=== PATIENT | female | born 1960 | race Caucasian/White ===

== ENCOUNTER → 2019-06-01 | Outpatient (CLI) | payer OTHER ==
--- NOTE | 2019-06-01 12:05 | XR ---
EXAMINATION TYPE: XR knee complete LT DATE OF EXAM: 06/01/2019 CLINICAL HISTORY: Left knee pain TECHNIQUE: Three views of the left knee are obtained. COMPARISON: None. FINDINGS: There is no acute fracture/dislocation evident in left knee. The tri-compartment joint sp aces appear aligned with medial compartment joint space narrowing and small tricompartmental osteophy stanton. Small suprapatellar joint effusion is also seen. The overlying soft tissue appears unremarkable . IMPRESSION: There is no acute fracture or dislocation in the left knee. 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
== END | disposition home or self-care (01) ==
LOC: RADXRYALE 11:26
PROVIDERS: ATTEND Physician Assistant Medical
DX: M17.12 Unilateral primary osteoarthritis, left knee (principal)

== ENCOUNTER → 2020-02-13 | Outpatient (CLI) | payer OTHER ==
--- NOTE | 2020-02-13 15:33 | XR ---
EXAMINATION TYPE: XR knee complete RT DATE OF EXAM: 02/13/2020 COMPARISON: NONE HISTORY: 60-year-old female with right TECHNIQUE: 3 views FINDINGS: Moderate to severe degenerative change of the patellofemoral compartment with subchondral sclerosis, marginal spurring, and articular surface irregularity. No knee joint effusion. Extensor mechanism demond ears intact. Degenerative spurring in the medial compartment. No acute fracture or dislocation. IMPRESSION: Moderate to severe patellofemoral compartment osteoarthrosis and at least mild degenerative change of the medial compartment.
== END | disposition home or self-care (01) ==
LOC: RADXRYALE 15:15
PROVIDERS: ATTEND Family Medicine
DX: M17.11 Unilateral primary osteoarthritis, right knee (principal)

== ENCOUNTER → 2024-01-04 | Outpatient (CLI) | payer OTHER ==
--- NOTE | 2024-01-05 10:44 | MM ---
Reason for Exam: Screening (asymptomatic). Last mammogram was performed 17 year(s) and 3 month(s) ago. Patient History: Menarche at age 15. First Full-Term at age 22. Hysterectomy at age 53. Postmenopausal. Last menstrual period: Risk Values: Mercedez 5 year model risk: 1.3%. NCI Lifetime model risk: 6.4%. Prior Study Comparison: 08/26/2005 Right Diagnostic Mammogram, [facility]. 02/25/2006 Right Diagnostic Mammogram, [facility]. 10/12/2006 Bilateral Diagnostic Mammogram, [facility]. Tissue Density: The breasts are heterogeneously dense, which may obscure small masses. Findings: Analyzed By CAD. There is an area of irregular density questionable distortion upper outer right breast. No suspicious grouped calcifications. Additional nodule measuring 8 mm posterior central right breast. Recommend spot compression view and ultrasound of both areas. Overall Assessment: Incomplete: need additional imaging evaluation, BI-RAD 0 Management: Diagnostic Mammogram of the right breast. . Patient should continue monthly self-breast exams. A clinical breast exam by your physician is recommended on an annual basis. This exam should not preclude additional follow-up of suspicious palpable abnormalities. Note on Mercedez scores and lifetime risk: 1. A Mercedez score greater than 3% is considered moderate risk. If this is the case, consider specialist referral to assess eligibility for a risk reducing agent. 2. If overall lifetime risk for the development of breast cancer is 20% or higher, the patient may qualify for future screening with alternating mammogram and breast MRI. Electronically signed and approved by: Vj Stark M.D. Radiologis
== END | disposition home or self-care (01) ==
LOC: RADMAMWWP 12:46
PROVIDERS: ATTEND Family Medicine
DX: Z12.31 Encounter for screening mammogram for malignant neoplasm of breast (principal); Z78.0 Asymptomatic menopausal state
CPT/HCPCS: 77067

== ENCOUNTER → 2024-01-07 | Outpatient (CLI) | payer OTHER ==
--- NOTE | 2024-01-07 10:40 | USB ---
Reason for Exam: Additional evaluation requested from abnormal screening. Patient History: Menarche at age 15. First Full-Term at age 22. Hysterectomy at age 53. Postmenopausal. Risk Values: Mercedez 5 year model risk: 1.3%. NCI Lifetime model risk: 6.4%. Technique: Method: Targeted. Prior Study Comparison: 02/25/2006 Right Diagnostic Mammogram, [facility]. 10/12/2006 Bilateral Diagnostic Mammogram, [facility]. 01/04/2024 Bilateral MG screening mammo w CAD, [facility]. Findings: The lateral section of the breast of the right breast, the axilla of the right breast and the retroareolar of the right breast were scanned. Simple cyst noted at the site of clinical concern right 1:00 position 7 cm from the cervical tissue.. Overall Assessment: Benign, BI-RAD 2 Management: Screening Mammogram of both breasts in 1 year. A clinical breast exam by your physician is recommended on an annual basis and results should be correlated with mammographic findings. This exam should not preclude additional follow-up of suspicious palpable abnormalities. Results were given to the patient verbally at the time of exam. Electronically signed and approved by: Patrick Johnson M.D. Radiologis
== END | disposition home or self-care (01) ==
LOC: RADMAMWWP 09:40
PROVIDERS: ATTEND Family Medicine
DX: R92.8 Other abnormal and inconclusive findings on diagnostic imaging of breast (principal); Z78.0 Asymptomatic menopausal state
CPT/HCPCS: 77061; 77065